=== PATIENT | female | born 1990 | race Caucasian/White ===

== ENCOUNTER 2016-07-06 21:38 | Emergency (ER) | payer BC ==
[~2016-07-06] VITALS: Ht 167.6 cm; Wt 92.4 kg
[~2016-07-06 21:38] MED LIST: ADVAIR 250/501 DISK IH; ALBUTEROL SULF8.5 GM IH; ALBUTEROL17 G1 IH; Advair HFA 230/21 IH; GLUCOPHAGE XR,500 MG PO; INDOCIN25 MG PO; LORTAB 5-325 M1 EACH PO; Levaquin PO; MELATONIN10 MG PO; MOBIC7.5 MG PO; MOTRIN800 MG PO; Motrin PO; NAPROSYN375 MG PO; NORCO 5/3251 TABLET PO; ORTHO TRI-CYCL1 EACH PO; PEN-VEE K,VEET500 MG PO; PERCOCET 5/31 TABLET PO; PHENTERMINE H37.5 MG PO; PROTONIX40 MG PO; PROVENTIL,2.5 MG/3 M IH; ROXICODONE5 MG PO; SPIRIVA1 INHALATI IH; Singulair PO; Sterapred DS 10 mg U PO; TORADOL10 MG PO; XYZAL5 MG PO; ZITHROMAX250 MG PO; ZOFRAN ODT4 MG PO; ZOFRAN4 MG PO
[2016-07-06] MEDS ORDERED: REGLAN10 MG PO (23:47)
[2016-07-06] MEDS ORDERED: IMITREX100 MG PO (23:47)
[2016-07-06] MEDS ORDERED: NAPROSYN500 MG PO (23:47)
[2016-07-07 00:05] VITALS: BP 131/94
== END 2016-07-07 00:25 | disposition home or self-care (01) ==
LOC: EME 21:38
DX: G43.909 Migraine, unspecified, not intractable, without status migrainosus (principal); F17.200 Nicotine dependence, unspecified, uncomplicated
CPT/HCPCS: 81003; 99281; 99284; J1885; J3030

== ENCOUNTER 2016-09-01 22:25 | Emergency (ER) | payer BC ==
[~2016-09-01] VITALS: Ht 167.6 cm; Wt 87.4 kg
[~2016-09-01 22:25] MED LIST changes: +IMITREX100 MG PO; +NAPROSYN500 MG PO; +REGLAN10 MG PO
[2016-09-02] MEDS ORDERED: NAPROSYN500 MG PO (01:58)
[2016-09-02] MEDS ORDERED: REGLAN10 MG PO (01:58)
[2016-09-02 02:01] VITALS: BP 121/84
== END 2016-09-02 02:07 | disposition home or self-care (01) ==
LOC: EME 22:25
DX: G43.909 Migraine, unspecified, not intractable, without status migrainosus (principal); F17.200 Nicotine dependence, unspecified, uncomplicated
CPT/HCPCS: 81003; 99281; 99285; J1200; J1885; J2765; J3030; J7030

== ENCOUNTER 2016-12-14 18:16 | Emergency (ER) | payer OTHER ==
[~2016-12-14] VITALS: Ht 165.1 cm; Wt 85.7 kg
[2016-12-14] MEDS ORDERED: ATARAX,VISTARIL25 MG PO (18:42)
[2016-12-14] MEDS ORDERED: CLONIDINE HCL0.1 MG PO (18:42)
[2016-12-14 19:07] VITALS: BP 160/98
== END 2016-12-14 19:09 | disposition home or self-care (01) ==
LOC: EME 18:16
DX: F14.23 Cocaine dependence with withdrawal (principal); F11.10 Opioid abuse, uncomplicated; J45.909 Unspecified asthma, uncomplicated; E28.2 Polycystic ovarian syndrome; F17.200 Nicotine dependence, unspecified, uncomplicated
CPT/HCPCS: 99281; 99284; Q0177

== ENCOUNTER 2016-12-17 18:15 | Emergency (ER) | payer OTHER ==
[~2016-12-17] VITALS: Ht 170.2 cm; Wt 86.0 kg
[~2016-12-17 18:15] MED LIST changes: +ATARAX,VISTARIL25 MG PO; +CLONIDINE HCL0.1 MG PO
[2016-12-17 18:59] VITALS: BP 130/86
== END 2016-12-17 19:01 | disposition home or self-care (01) ==
LOC: EME 18:15
DX: F19.10 Other psychoactive substance abuse, uncomplicated (principal); J45.909 Unspecified asthma, uncomplicated; F17.200 Nicotine dependence, unspecified, uncomplicated
CPT/HCPCS: 99281; 99283

== ENCOUNTER 2017-04-11 19:50 | Emergency (ER) | payer OTHER ==
[~2017-04-11] VITALS: Ht 162.6 cm; Wt 94.8 kg
[2017-04-11] MEDS ORDERED: VENTOLIN HFA18 GM IH (21:32)
[2017-04-11] MEDS ORDERED: ALBUTEROL2.5 MG/3 M IH (21:32)
[2017-04-12] MEDS ORDERED: PREDNISONE20 MG PO (00:49)
[2017-04-12] MEDS ORDERED: ZITHROMAX250 MG PO (00:49)
[2017-04-12 01:07] VITALS: BP 140/79
== END 2017-04-12 01:15 | disposition home or self-care (01) ==
LOC: EME 19:50
DX: J45.901 Unspecified asthma with (acute) exacerbation (principal); J18.9 Pneumonia, unspecified organism; F17.200 Nicotine dependence, unspecified, uncomplicated
CPT/HCPCS: 71020; 93005; 94640; 94640 76; 99281; 99285; J7512

== ENCOUNTER 2017-08-12 22:09 | Emergency (ER) | payer OTHER ==
[~2017-08-12] VITALS: Ht 167.6 cm; Wt 93.1 kg
[~2017-08-12 22:09] MED LIST changes: +ALBUTEROL2.5 MG/3 M IH; +PREDNISONE20 MG PO; +VENTOLIN HFA18 GM IH
[2017-08-12 22:36] LABS: HEMATOCRIT 41.9 % (36.0-46.0); HEMOGLOBIN 14.8 G/DL (11.9-15.5); MCH 30.4 PG (29.0-34.0); MCHC 35.3 G/DL (30.0-36.0); PLATELET COUNT 282 K/uL (156-360); RBC DIS.WIDTH-CV 11.9 % (11.8-14.6); RBC DIS.WIDTH-SD 37.4 % (39-53); RED BLOOD COUNT 4.87 M/uL (3.80-5.20); WHITE BLOOD COUNT 15.1 K/uL (4.1-10.2)
[2017-08-12 22:45] LABS: ALBUMIN 4.1 g/dL (3.2-4.8)
[2017-08-12 22:46] LABS: CHLORIDE 111 mEq/L (99-109); POTASSIUM 3.9 mEq/L (3.7-5.4); SODIUM 140 mEq/L (136-147)
[2017-08-12 22:48] LABS: GLUCOSE 91 mg/dL (70-99); TOTAL PROTEIN 7.3 g/dL (6.4-8.3)
[2017-08-12 22:50] LABS: TOTAL BILIRUBIN 0.4 mg/dL (0.0-1.0)
[2017-08-12 22:51] LABS: ALKALINE PHOSPHATASE 79 IU/L (3-129)
[2017-08-12 22:52] LABS: CREATININE 0.7 mg/dL (0.6-1.3); GFR ESTIMATE (CALCULATED) > 59 mL/min/
[2017-08-12 22:53] LABS: AST (GOT) 23 IU/L (2-34); UREA NITROGEN (BUN) 11 mg/dL (9-23)
[2017-08-12 22:55] LABS: ALT (GPT) 17 IU/L (3-49); LIPASE 35 U/L (1.0-51.0)
[2017-08-12 23:59] LABS: QUANTITATIVE HCG < 4.0 MIU/ML
[2017-08-13 00:48] LABS: APPEARANCE CLEAR ((CLEAR)); BILIRUBIN NEGATIVE; BLOOD NEGATIVE; COLOR YELLOW ((YELLOW)); GLUCOSE (STRIP) NEGATIVE; KETONES NEGATIVE; LEUKOCYTES NEGATIVE; NITRITE NEGATIVE; PROTEIN (STRIP) NEGATIVE; SPECIFIC GRAVITY 1.021 (1.000-1.030); UCUL ADDED? NO; UROBILINOGEN 0.2 MG/DL (0.2-1.0)
[2017-08-13 01:25] LABS: AMPHETAMINE NEGATIVE (500 ng/mL); BARBITURATES PRESUMPTIVE POSITIVE (200 ng/mL); BENZODIAZEPINES NEGATIVE (150 ng/mL); BUPRENORPHINE NEGATIVE (10 ng/mL); COCAINE NEGATIVE (150 ng/mL); METHADONE NEGATIVE (200 ng/mL); METHAMPHETAMINE NEGATIVE (500 ng/mL); OPIATES (MORPHINE) NEGATIVE (100 ng/mL); OXYCODONE NEGATIVE (100 ng/mL); PHENCYCLIDINE NEGATIVE (25 ng/mL); PROPOXYPHENE NEGATIVE (300 ng/mL); THC CANNABINOIDS PRESUMPTIVE POSITIVE (50 ng/mL); TRICYCLIC ANTIDEPRESSANTS NEGATIVE (300 ng/mL)
[2017-08-13] MEDS ORDERED: ZOFRAN4 MG PO (01:56)
[2017-08-13] MEDS ORDERED: ULTRAM50 MG PO (01:56)
[2017-08-13 02:46] VITALS: BP 127/85
== END 2017-08-13 02:47 | disposition home or self-care (01) ==
LOC: EME → EDBD 22:09 → EME 22:09
PROVIDERS: Emergency Medicine
DX: K80.20 Calculus of gallbladder without cholecystitis without obstruction (principal); K21.9 Gastro-esophageal reflux disease without esophagitis; J45.909 Unspecified asthma, uncomplicated; F17.200 Nicotine dependence, unspecified, uncomplicated
CPT/HCPCS: 74176; 76705; 80053; 81003; 83690; 84702; 84999; 85027; 93005; 99281; 99285; C9113; J1630; J2405; J7030

== ENCOUNTER 2017-09-21 17:48 | Emergency (ER) | payer OTHER ==
[~2017-09-21] VITALS: Ht 165.1 cm; Wt 91.4 kg
[~2017-09-21 17:48] MED LIST changes: +ULTRAM50 MG PO
[2017-09-21 17:51] VITALS: BP 137/99
[2017-09-21 18:42] LABS: HEMATOCRIT 41.8 % (36.0-46.0); HEMOGLOBIN 14.8 G/DL (11.9-15.5); MCH 30.6 PG (29.0-34.0); MCHC 35.4 G/DL (30.0-36.0); MCV 86.4 FL (83-99); PLATELET COUNT 252 K/uL (156-360); RBC DIS.WIDTH-CV 11.9 % (11.8-14.6); RBC DIS.WIDTH-SD 37.5 % (39-53); RED BLOOD COUNT 4.84 M/uL (3.80-5.20); WHITE BLOOD COUNT 10.8 K/uL (4.1-10.2)
[2017-09-21 18:51] LABS: ALBUMIN 4.5 g/dL (3.2-4.8); CHLORIDE 108 mEq/L (99-109); POTASSIUM 4.5 mEq/L (3.7-5.4); SODIUM 140 mEq/L (136-147)
[2017-09-21 18:53] LABS: GLUCOSE 92 mg/dL (70-99); TOTAL PROTEIN 7.3 g/dL (6.4-8.3)
[2017-09-21 18:55] LABS: TOTAL BILIRUBIN 0.7 mg/dL (0.0-1.0)
[2017-09-21 18:57] LABS: ALKALINE PHOSPHATASE 66 IU/L (3-129); CREATININE 0.8 mg/dL (0.6-1.3); GFR ESTIMATE (CALCULATED) > 59 mL/min/
[2017-09-21 18:58] LABS: UREA NITROGEN (BUN) 10 mg/dL (9-23)
[2017-09-21 18:59] LABS: AST (GOT) 16 IU/L (2-34)
[2017-09-21 19:00] LABS: ALT (GPT) 29 IU/L (3-49); LIPASE 36 U/L (1.0-51.0)
[2017-09-21 19:06] LABS: QUANTITATIVE HCG < 4.0 MIU/ML
== END 2017-09-21 20:27 | disposition left against medical advice (07) ==
LOC: EME 17:48
PROVIDERS: Physician Assistant Medical
DX: K80.20 Calculus of gallbladder without cholecystitis without obstruction (principal); K58.9 Irritable bowel syndrome, unspecified; J45.909 Unspecified asthma, uncomplicated; E28.2 Polycystic ovarian syndrome; F17.200 Nicotine dependence, unspecified, uncomplicated; R76.11 Nonspecific reaction to tuberculin skin test without active tuberculosis; Z88.8 Allergy status to other drugs, medicaments and biological substances; Z88.6 Allergy status to analgesic agent
CPT/HCPCS: 76705; 80053; 81003; 83690; 84702; 85027; 99281; 99284

== ENCOUNTER 2017-10-05 13:43 | Inpatient (IN) | payer OTHER ==
[~2017-10-05] VITALS: Ht 162.6 cm; Wt 95.0 kg
[~2017-10-05 13:43] MED LIST changes: +DEPO-PROVER150 MG/ML IM
[2017-10-05] MEDS ORDERED: PROPRANOLOL HCL80 M1 PO (14:00)
[2017-10-05 14:23] VITALS: BP 135/72
[2017-10-05 15:23] LABS: BENZODIAZEPINES, URINE SCREEN Negative (200 ng/mL)
[2017-10-05 20:27] VITALS: BP 152/84
[2017-10-06] VITALS (7 sets, daily range): BP systolic 119–155; BP diastolic 75–80
[2017-10-06 06:07] LABS: HEMATOCRIT 41.7 % (36.0-46.0); MCH 29.2 PG (29.0-34.0); MCHC 33.6 G/DL (30.0-36.0); MCV 86.9 FL (83-99); PLATELET COUNT 298 K/uL (156-360); RBC DIS.WIDTH-CV 11.9 % (11.8-14.6); RBC DIS.WIDTH-SD 37.8 % (39-53); WHITE BLOOD COUNT 15.7 K/uL (4.1-10.2)
[2017-10-06 06:25] LABS: ALBUMIN 3.9 G/DL (3.2-4.8); ALKALINE PHOSPHATASE 63 IU/L (3-129); ALT (GPT) 287 IU/L (3-49); AST (GOT) 182 IU/L (2-34); CHLORIDE 105 MEQ/L (99-109); CREATININE 0.7 MG/DL (0.6-1.3); GFR ESTIMATE (CALCULATED) > 59 mL/min/; GLUCOSE 103 mg/dL (70-99); MAGNESIUM 1.8 mg/dl (1.3-2.7); POTASSIUM 4.8 MEQ/L (3.7-5.4); SODIUM 138 MEQ/L (136-147); TOTAL BILIRUBIN 1.3 MG/DL (0.0-1.0); TOTAL PROTEIN 6.1 G/DL (6.4-8.3); UREA NITROGEN (BUN) 10 mg/dL (9-23)
[2017-10-07 03:32] VITALS: BP 128/75
[2017-10-07 06:14] LABS: HEMATOCRIT 37.2 % (36.0-46.0); HEMOGLOBIN 12.7 G/DL (11.9-15.5); MCH 29.5 PG (29.0-34.0); MCHC 34.1 G/DL (30.0-36.0); MCV 86.5 FL (83-99); PLATELET COUNT 238 K/uL (156-360); RBC DIS.WIDTH-SD 37.8 % (39-53); WHITE BLOOD COUNT 11.9 K/uL (4.1-10.2)
[2017-10-07 06:35] LABS: ALBUMIN 3.9 G/DL (3.2-4.8); ALKALINE PHOSPHATASE 63 IU/L (3-129); ALT (GPT) 180 IU/L (3-49); CHLORIDE 108 MEQ/L (99-109); CREATININE 0.6 MG/DL (0.6-1.3); GFR ESTIMATE (CALCULATED) > 59 mL/min/; GLUCOSE 96 mg/dL (70-99); SODIUM 138 MEQ/L (136-147); TOTAL BILIRUBIN 1.4 MG/DL (0.0-1.0); TOTAL PROTEIN 6.5 G/DL (6.4-8.3); UREA NITROGEN (BUN) 10 mg/dL (9-23)
[2017-10-07 06:41] LABS: AST (GOT) 52 IU/L (2-34); POTASSIUM 3.8 MEQ/L (3.7-5.4)
[2017-10-07 07:03] VITALS: BP 128/74
[2017-10-07 14:42] VITALS: BP 133/77
[2017-10-07 23:55] VITALS: BP 117/54
[2017-10-08 06:24] LABS: HEMATOCRIT 33.4 % (36.0-46.0); HEMOGLOBIN 11.4 G/DL (11.9-15.5); MCH 29.7 PG (29.0-34.0); MCHC 34.1 G/DL (30.0-36.0); PLATELET COUNT 207 K/uL (156-360); RBC DIS.WIDTH-CV 11.8 % (11.8-14.6); RBC DIS.WIDTH-SD 37.7 % (39-53); RED BLOOD COUNT 3.84 M/uL (3.80-5.20); WHITE BLOOD COUNT 8.5 K/uL (4.1-10.2)
[2017-10-08 06:45] VITALS: BP 103/54
[2017-10-08 06:48] VITALS: BP 117/54
[2017-10-08 06:48] LABS: ALBUMIN 3.5 G/DL (3.2-4.8); ALKALINE PHOSPHATASE 77 IU/L (3-129); ALT (GPT) 180 IU/L (3-49); AST (GOT) 68 IU/L (2-34); CHLORIDE 107 MEQ/L (99-109); CREATININE 0.7 MG/DL (0.6-1.3); GFR ESTIMATE (CALCULATED) > 59 mL/min/; GLUCOSE 95 mg/dL (70-99); POTASSIUM 3.8 MEQ/L (3.7-5.4); SODIUM 138 MEQ/L (136-147); TOTAL PROTEIN 5.7 G/DL (6.4-8.3); UREA NITROGEN (BUN) 10 mg/dL (9-23)
[2017-10-08 06:50] LABS: TOTAL BILIRUBIN 0.6 MG/DL (0.0-1.0)
[2017-10-08] MEDS ORDERED: NORCO 5/3251 TABLET PO (12:06)
[2017-10-08] MEDS ORDERED: MOTRIN800 MG PO (12:33)
== END 2017-10-08 15:21 | disposition home or self-care (01) | DRG 410 ==
LOC: SDC 13:43 → 2SOUTH 19:03 → 2EAST 19:03 → ENRESERV 19:06 → 2EAST 20:25
PROVIDERS: Surgery
PROC: 0FB90ZZ Excision of Common Bile Duct, Open Approach (ICD-10-PCS; principal; 2017-10-08)
PROC: BF131ZZ Fluoroscopy of Gallbladder and Bile Ducts using Low Osmolar Contrast (ICD-10-PCS; 2017-10-08)
DX: K80.10 Calculus of gallbladder with chronic cholecystitis without obstruction (principal); F41.1 Generalized anxiety disorder; J45.909 Unspecified asthma, uncomplicated; F17.200 Nicotine dependence, unspecified, uncomplicated; F32.9 Major depressive disorder, single episode, unspecified
CPT/HCPCS: 74300; 80053; 80306 90; 81025; 83735; 85027; 88300; 88304; 99202; J0131; J1170; J1885; J2250; J2405; J3010; J3480; Q0175; S0020; S0074

== ENCOUNTER 2017-10-26 10:52 | Emergency (ER) | payer OTHER ==
[~2017-10-26] VITALS: Ht 167.6 cm; Wt 92.0 kg
[2017-10-26 12:07] VITALS: BP 123/99
== END 2017-10-26 12:09 | disposition home or self-care (01) ==
LOC: EME 10:52
DX: G89.18 Other acute postprocedural pain (principal); R10.11 Right upper quadrant pain; Z90.49 Acquired absence of other specified parts of digestive tract; Z98.890 Other specified postprocedural states; F17.200 Nicotine dependence, unspecified, uncomplicated
CPT/HCPCS: 99281; 99283

== ENCOUNTER → 2017-10-26 | Outpatient (CLI) | payer OTHER ==
[~2017-10-26] MED LIST changes: +PROPRANOLOL HCL80 M1 PO
== END | disposition home or self-care (01) ==
LOC: RAD 09:50
DX: Z98.890 Other specified postprocedural states (principal)
CPT/HCPCS: 47531